=== PATIENT | female | born 1955 | race Caucasian/White ===

== ENCOUNTER → 2018-07-18 08:48 | Outpatient (CLI) | payer OTHER, SELFPAY ==
[2018-07-18 10:38] LABS: Vitamin D,25 Hydroxy 22.4 ng/mL (29.95-100.01)
[2018-07-18 10:54] LABS: Anion Gap 8 (5-15); BUN 18 mg/dL (7-18); BUN/Creat Ratio 21.7 RATIO (10-20); Calcium,Total 9.1 mg/dL (8.5-10.1); Chloride 104 mmol/L (98-107); Cholesterol 231 mg/dL (200); Creatinine, Serum 0.83 mg/dL (0.55-1.02); EST Glomerular Filtration Rate 74 mL/min (>60); Est Glom Filt Rate - Afr Amer 90 mL/min (>60); Glucose 81 mg/dL (74-106); High Density Lipoprotein 91 mg/dL; Potassium 3.7 mmol/L (3.5-5.1); Sodium Level 143 mmol/L (136-145); Thyroid Stim Hormone (TSH) 1.19 uIU/mL (0.358-3.74); Triglycerides 58 mg/dL; Very Low Density Lipoprotein 12 mg/dL (5-40)
== END ==
PROVIDERS: Family Provider Family Medicine; PCP Family Medicine; Visit Provider Family Medicine
DX: I10 Essential (primary) hypertension (principal); E55.9 Vitamin D deficiency, unspecified; Z13.29 Encounter for screening for other suspected endocrine disorder
CPT/HCPCS: 36415; 80048; 80061; 82306; 84443

== ENCOUNTER → 2018-11-11 13:58 | Outpatient (CLI) | payer OTHER, SELFPAY ==
[2018-11-11 15:48] LABS: Vitamin D,25 Hydroxy 20.1 ng/mL (29.95-100.01)
== END ==
PROVIDERS: Family Provider Family Medicine; PCP Family Medicine; Referring Provider Family Medicine; Visit Provider Family Medicine
DX: E55.9 Vitamin D deficiency, unspecified (principal)
CPT/HCPCS: 36415; 82306

== ENCOUNTER → 2018-12-11 16:00 | Outpatient (CLI) | payer OTHER, SELFPAY ==
--- NOTE | 2018-12-11 16:06 | BI_ITS ---
MAMMOGRAPHY - BILATERAL SCREENING REASON FOR EXAM: Female, 63 years old. Routine annual screening examination. PERTINENT HISTORY: Mother with breast cancer. TECHNIQUE: Digital bilateral breast kodak (3D mammographic acquisition) in the CC and MLO projections. 2-D mediolateral oblique (MLO) and craniocaudad (CC) views of both breasts were obtained. CAD: Full Field Digital Mammography with Computer Added Detection was performed. COMPARISON: Comparison is made with prior examination of January 26, 2016 and September 16, 2013. FINDINGS: Breast Composition: The breasts are almost entirely fatty. There is a 6.3 mm x 6 mm nodular density in the retroareolar region of the right breast. Correlation with ultrasound is recommended. No other significant abnormalities are identified. BI/SCREENING MAMM (CAD), BILAT IMPRESSION: 6.3 mm x 6 mm nodular density in the retroareolar region of the right breast. Correlation with ultrasound is recommended. ASSESSMENT CATEGORY: BIRADS Category 0: Incomplete. Need additional imaging evaluation. A letter regarding these results will be sent to the patient by the facility within 30 days. Approximately 10% of breast cancers are not detected by mammography. A normal mammogram should not delay biopsy of a clinically suspicious abnormality. [id number] Electronically Signed: Rocky Kendall, at 8:20 EDT , Service support ,
== END ==
PROVIDERS: Family Provider Family Medicine; PCP Family Medicine; Referring Provider Family Medicine; Visit Provider Family Medicine
DX: Z12.31 Encounter for screening mammogram for malignant neoplasm of breast (principal)
CPT/HCPCS: 77063; 77067

== ENCOUNTER → 2018-12-15 | Outpatient (CLI) | payer OTHER, SELFPAY ==
--- NOTE | 2018-12-15 08:01 | US_ITS ---
STUDY: ULTRASOUND BREAST - RIGHT REASON FOR EXAM: Female, 63 years old. Abnormal screening mammogram. TECHNIQUE: Axial and longitudinal images of the RIGHT breast were performed with a high resolution ultrasound transducer. COMPARISON: Comparison is made with prior mammogram dated December 11, 2018. FINDINGS: RIGHT Breast: The retroareolar region of the breast was examined by ultrasound. There is evidence of dilated retroareolar ducts measuring up to 4 mm. This most likely corresponds to the mammographic findings. US/Breast Limited Unilateral IMPRESSION: Dilated retroareolar ducts. ASSESSMENT CATEGORY: BIRADS Category 2: Benign. A letter regarding these results will be sent to the patient by the facility within 30 days. Electronically Signed: Rocky Kendall, at 14:22 EDT , Service support ,
== END | disposition home or self-care (01) ==
LOC: OPUS 07:59
PROVIDERS: Family Provider Family Medicine; PCP Family Medicine; Referring Provider Family Medicine; Visit Provider Family Medicine
DX: R92.2 Inconclusive mammogram (principal)
CPT/HCPCS: 76642

== ENCOUNTER → 2020-01-11 11:29 | Outpatient (CLI) | payer OTHER, SELFPAY ==
[2020-01-11 15:17] LABS: Absolute Lymphocyte Count 1.65 X10^3/uL (0.83-4.51); Absolute Neutrophil Count 4.3 X10^3/uL (2.0-7.7); Basophil# 0.04 X10^3/uL; Basophil% 0.6 % (0-1); Eosinophils% 1.5 % (0-5); Hematocrit 42.3 % (37-47); Hemoglobin 13.5 g/dL (12.0-15.0); Lymphocyte # 1.65 X10^3/ul (4.0); Lymphocyte % 24.5 % (19-41); Mean Corp Hgb Conc 31.9 g/dL (32-36); Mean Corpuscular Hgb 27.4 pg (27.0-32.0); Monocyte# 0.63 X10^3/uL; Monocyte% 9.4 % (0-10); NRBC Flagged by Analyzer 0 % (0-5); Neutrophil # 4.29 X10^3/uL (2.7-7.7); Neutrophil % 63.7 % (47-70); Platelet Count 220 K/mm3 (150-450); RBC Distribution Width CV 14.3 % (11.6-14.6); RBC Distribution Width SD 43.7 fl (35.1-43.9); Red Blood Count 4.92 M/mm3 (4.2-5.4); White Blood Count 6.7 K/mm3 (4.4-11.0)
[2020-01-11 15:27] LABS: BUN 13 mg/dL (7-18); Creatinine, Serum 0.81 mg/dL (0.55-1.02); EST Glomerular Filtration Rate 76 mL/min (>60); Glucose 74 mg/dL (74-106)
[2020-01-11 15:28] LABS: ALB/GLOB Ratio 0.8 RATIO (0.9-2.4); AST(SGOT) 26 U/L (15-37); Alanine Aminotransfer ALT/SGPT 34 U/L (13-56); Albumin, Serum 3.5 g/dL (3.2-5.0); Alkaline Phosphatase 138 U/L (45-117); Anion Gap 5 (5-15); Calcium,Total 9.4 mg/dL (8.5-10.1); Chloride 102 mmol/L (98-107); Est Glom Filt Rate - Afr Amer 92 mL/min (>60); Globulin 4.3 g/dL (2.2-4.2); Potassium 3.5 mmol/L (3.5-5.1); Protein, Total 7.8 g/dL (6.4-8.2); Sodium Level 137 mmol/L (136-145)
[2020-01-11 15:41] LABS: Internal QC Validated? YES +Cl - CLEAR BKGD; Monotest Negative (Negative)
[2020-01-13 16:29] LABS: EBV Acute VCA IgM < 36.0 U/mL (0.0-35.9); EBV-VCA IgG > 600.0 U/mL (0.0-17.9)
== END ==
PROVIDERS: PCP Family Medicine; Visit Provider Family Medicine
DX: I10 Essential (primary) hypertension (principal)
CPT/HCPCS: 36415; 80053; 85025; 86308; 86664; 86665

== ENCOUNTER → 2020-05-10 14:20 | Outpatient (CLI) | payer OTHER, SELFPAY ==
--- NOTE | 2020-05-10 14:23 | BI_ITS ---
MAMMOGRAPHY - BILATERAL SCREENING REASON FOR EXAM: Female, 64 years old. Routine annual screening examination. PERTINENT HISTORY: Mother with breast cancer. TECHNIQUE: Digital bilateral breast kemi (3D mammographic acquisition) in the CC and MLO projections. 2-D mediolateral oblique (MLO) and craniocaudad (CC) views of both breasts were obtained. CAD: Full Field Digital Mammography with Computer Added Detection was performed. COMPARISON: Comparison is made with prior study dated 12/11/2018 and 01/26/2016. FINDINGS: Breast Composition: There are scattered areas of fibroglandular density. There are no dominant masses or suspicious calcifications. Stable 6.3 mm x 6 mm well-defined nodule in the retroareolar region of the right breast. This most likely represents a small lymph node. No other significant abnormalities are identified. There has been no significant change since the prior study. BI/SCREEN MAMM (CAD) W/KEMI BILAT IMPRESSION: Stable bilateral screening mammogram. Yearly follow-up mammogram recommended. (A) ASSESSMENT CATEGORY: BIRADS Category 2: Benign. A letter regarding these results will be sent to the patient by the facility within 30 days. Approximately 10% of breast cancers are not detected by mammography. A normal mammogram should not delay biopsy of a clinically suspicious abnormality. [id number] Electronically Signed: Rocky Kendall, at 15:47 EDT , Service support ,
== END ==
PROVIDERS: PCP Family Medicine; Referring Provider Family Medicine; Visit Provider Family Medicine
DX: Z12.31 Encounter for screening mammogram for malignant neoplasm of breast (principal); Z80.3 Family history of malignant neoplasm of breast
CPT/HCPCS: 77063; 77067

== ENCOUNTER → 2021-04-14 07:48 | Outpatient (CLI) | payer OTHER, SELFPAY ==
[2021-04-14 10:38] LABS: Vitamin D,25 Hydroxy 39.8 ng/mL
[2021-04-14 10:53] LABS: Anion Gap 7 (5-15); BUN 16 mg/dL (7-18); Calcium,Total 9.2 mg/dL (8.5-10.1); Chloride 104 mmol/L (98-107); Cholesterol 225 mg/dL (200); Creatinine, Serum 0.76 mg/dL (0.55-1.02); EST Glomerular Filtration Rate 81 mL/min (>60); Est Glom Filt Rate - Afr Amer 98 mL/min (>60); Glucose 84 mg/dL (74-106); High Density Lipoprotein 80 mg/dL; Potassium 3.7 mmol/L (3.5-5.1); Sodium Level 140 mmol/L (136-145); Triglycerides 67 mg/dL; Very Low Density Lipoprotein 13 mg/dL (5-40)
== END ==
PROVIDERS: PCP Family Medicine; Referring Provider Family Medicine; Visit Provider Family Medicine
DX: E55.9 Vitamin D deficiency, unspecified (principal); I10 Essential (primary) hypertension
CPT/HCPCS: 36415; 80048; 80061; 82306

== ENCOUNTER 2021-11-07 14:53 | Outpatient (CLI) | payer MEDICARE, OTHER, SELFPAY ==
--- NOTE | 2021-11-07 14:58 | BI_ITS ---
MAMMOGRAPHY - BILATERAL SCREENING REASON FOR EXAM: Female, 66 years old. Routine annual screening examination. PERTINENT HISTORY: Mother with breast cancer. TECHNIQUE: Digital bilateral breast kemi (3D mammographic acquisition) in the CC and MLO projections. 2-D mediolateral oblique (MLO) and craniocaudad (CC) views of both breasts were obtained. CAD: Full Field Digital Mammography with Computer Added Detection was performed. COMPARISON: Comparison is made with prior study 05/10/2020 and 12/11/2018. FINDINGS: Breast Composition: There are scattered areas of fibroglandular density. There are no dominant masses or suspicious calcifications. Stable 6.3 mm x 6 mm well-defined nodule in the retroareolar region of the right breast. No other significant abnormalities are identified. There has been no significant change since the prior study. BI/SCRN MAMM (CAD)W/KEMI BILAT IMPRESSION: Stable bilateral screening mammogram. Yearly follow-up mammogram recommended. (A) ASSESSMENT CATEGORY: BIRADS Category 2: Benign. A letter regarding these results will be sent to the patient by the facility within 30 days. Approximately 10% of breast cancers are not detected by mammography. A normal mammogram should not delay biopsy of a clinically suspicious abnormality. [id number] Electronically Signed: Rocky Kendall MD at 15:53 EST ,
== END 2021-11-07 23:59 | disposition home or self-care (01) ==
LOC: OPBI 14:55
PROVIDERS: PCP Family Medicine; Referring Provider Family Medicine; Visit Provider Family Medicine
DX: Z12.31 Encounter for screening mammogram for malignant neoplasm of breast (principal); Z80.3 Family history of malignant neoplasm of breast
CPT/HCPCS: 77063; 77067

== ENCOUNTER → 2022-06-20 | Outpatient (CLI) | payer MEDICARE, OTHER, SELFPAY ==
--- NOTE | 2022-06-20 08:44 | BD_ITS ---
STUDY: DUAL ENERGY X-RAY ABSORPTIOMETRY / DXA REASON FOR EXAM: Female, 66 years old. [id number] TECHNIQUE: Bone Mineral Density (BMD) measurements of lumbar spine and bilateral hips were obtained. COMPARISON: None. FINDINGS: Lumbar Spine (L1-L4): g/cm2 (1.117) / T-score (0.9) / Z-score (2.7) Findings are suggestive of normal bone density with a low fracture risk. Left Femur Total: g/cm2 (0.988) / T-score (0.4) / Z-score (1.6) Left Femoral Neck: g/cm2 (0.719) / T-score (-1.2) / Z-score (0.4) Right Femur Total: g/cm2 (0.975) / T-score (0.3) / Z-score (1.5) Right Femoral Neck: g/cm2 (0.772) / T-score (-0.7) / Z-score (0.9) BD/Dexa Bone Density Study IMPRESSION: The patient is considered osteopenic as outlined below according to World Cole Organization (WHO) criteria with a low fracture risk. Reference Information: The T-score is the number of standard deviations above or below the standard which is normal for young adults at their peak bone mineral density. The World Health Organization (WHO) interprets the T-scores as follows: Above -1 Normal bone density Between -1 and -2.5 Osteopenia Equal to / or below -2.5 Osteoporosis As a practical clinical guideline, osteopenia may be graded as follows: Mild -1 through -1.5 Moderate -1.6 through -2.0 Severe -2.1 through -2.4 The Z-score is the number of standard deviations above or below age-matched controls. A Z-score of less than -1.5 would be considered abnormal. References: 1. NIH Osteoporosis and Related Bone Diseases www osteo.org 2. International Society for Clinical Densitometry www iscd.org 3. National Osteoporosis Foundation www nof.org Electronically Signed: Rocky Kendall MD at 12:44 EDT ,
[2022-06-20 09:42] LABS: Vitamin D,25 Hydroxy 48.2 ng/mL
[2022-06-20 09:43] LABS: Anion Gap 6 (5-15); BUN 19 mg/dL (7-18); BUN/Creat Ratio 22.2 RATIO (10-20); Calcium,Total 9.2 mg/dL (8.5-10.1); Chloride 103 mmol/L (98-107); Cholesterol 236 mg/dL (200); Creatinine, Serum 0.86 mg/dL (0.55-1.02); EST Glomerular Filtration Rate 71 mL/min (>60); Est Glom Filt Rate - Afr Amer 85 mL/min (>60); Glucose 90 mg/dL (74-106); High Density Lipoprotein 88 mg/dL; Potassium 3.6 mmol/L (3.5-5.1); Sodium Level 139 mmol/L (136-145); Triglycerides 79 mg/dL; Very Low Density Lipoprotein 16 mg/dL (5-40)
== END | disposition home or self-care (01) ==
PROVIDERS: PCP Family Medicine; Referring Provider Family Medicine; Visit Provider Family Medicine
DX: Z78.0 Asymptomatic menopausal state (principal); E55.9 Vitamin D deficiency, unspecified; I10 Essential (primary) hypertension
CPT/HCPCS: 36415; 77080; 80048; 80061; 82306

== ENCOUNTER → 2023-07-06 | Outpatient (CLI) | payer MEDICARE, OTHER, SELFPAY ==
[2023-07-06 11:09] LABS: Anion Gap 1 (5-15); BUN 18 mg/dL (7-18); BUN/Creat Ratio 19.1 RATIO (10-20); Calcium,Total 9.5 mg/dL (8.5-10.1); Chloride 104 mmol/L (98-107); Cholesterol 261 mg/dL (200); Creatinine, Serum 0.94 mg/dL (0.55-1.02); EST Glomerular Filtration Rate 63 mL/min (>60); Est Glom Filt Rate - Afr Amer 76 mL/min (>60); Glucose 87 mg/dL (74-106); High Density Lipoprotein 88 mg/dL; Sodium Level 136 mmol/L (136-145); Thyroid Stim Hormone (TSH) 0.78 uIU/mL (0.358-3.74); Triglycerides 76 mg/dL; Very Low Density Lipoprotein 15 mg/dL (5-40)
[2023-07-08 10:31] LABS: Vitamin D,25 Hydroxy 101.6 ng/mL
== END | disposition home or self-care (01) ==
LOC: MTLAB 09:45 → LAB 09:46
PROVIDERS: PCP Family Medicine; Referring Provider Family Medicine; Visit Provider Family Medicine
DX: I10 Essential (primary) hypertension (principal); M85.80 Other specified disorders of bone density and structure, unspecified site
CPT/HCPCS: 36415; 80048; 80061; 82306; 84443

== ENCOUNTER → 2024-06-17 | Outpatient (CLI) | payer MEDICARE, OTHER, SELFPAY ==
--- NOTE | 2024-06-17 08:09 | BI_ITS ---
MAMMOGRAPHY - BILATERAL SCREENING REASON FOR EXAM: Female, 68 years old. Routine annual screening examination. PERTINENT HISTORY: Mother with breast cancer. TECHNIQUE: Digital bilateral breast kemi (3D mammographic acquisition) in the CC and MLO projections. 2-D mediolateral oblique (MLO) and craniocaudad (CC) views of both breasts were obtained. CAD: Full Field Digital Mammography with Computer Added Detection was performed. COMPARISON: Comparison is made with prior study November 07, 2021 and May 10, 2020. FINDINGS: Breast Composition: There are scattered areas of fibroglandular density. There are no dominant masses or suspicious calcifications. Stable 6 mm well-defined nodule in the retroareolar region of the right breast. No other significant abnormalities are identified. There has been no significant change since the prior study. BI/SCRN MAMM (CAD)W/KEMI BILAT IMPRESSION: Stable bilateral screening mammogram. Yearly follow-up mammogram recommended. (A) ASSESSMENT CATEGORY: BIRADS Category 2: Benign. A letter regarding these results will be sent to the patient by the facility within 30 days. Approximately 10% of breast cancers are not detected by mammography. A normal mammogram should not delay biopsy of a clinically suspicious abnormality. [id number] Electronically Signed: Rocky Kendall MD at 9:45 EDT ,
== END | disposition home or self-care (01) ==
LOC: OPBI 08:07
PROVIDERS: PCP Family Medicine; Referring Provider Family Medicine; Visit Provider Family Medicine
DX: Z12.31 Encounter for screening mammogram for malignant neoplasm of breast (principal); Z80.3 Family history of malignant neoplasm of breast
CPT/HCPCS: 77063; 77067

== ENCOUNTER → 2024-07-29 | Outpatient (CLI) | payer MEDICARE, OTHER, SELFPAY ==
[2024-07-29 10:21] LABS: Hematocrit 38.9 % (37-47); Hemoglobin 12.2 g/dL (12.0-15.0); Mean Corp Hgb Conc 31.4 g/dL (32-36); Mean Corpuscular Hgb 26.3 pg (27.0-32.0); Mean Corpuscular Volume 83.8 fL (81-99); Mean Platelet Vol. 10.9 fl (6.2-12.0); Platelet Count 208 K/mm3 (150-450); RBC Distribution Width CV 13.6 % (11.6-14.6); RBC Distribution Width SD 41.9 fl (35.1-43.9); Red Blood Count 4.64 M/mm3 (4.2-5.4); White Blood Count 4.7 K/mm3 (4.4-11.0)
[2024-07-29 10:48] LABS: ALB/GLOB Ratio 0.9 RATIO (0.9-2.4); AST(SGOT) 15 U/L (15-37); Alanine Aminotransfer ALT/SGPT 14 U/L (13-56); Albumin, Serum 3.3 g/dL (3.2-5.0); Alkaline Phosphatase 94 U/L (45-117); Anion Gap 4 (5-15); BUN 21 mg/dL (7-18); BUN/Creat Ratio 22.2 RATIO (10-20); Calcium,Total 9.1 mg/dL (8.5-10.1); Chloride 106 mmol/L (98-107); Cholesterol 233 mg/dL (200); Creatinine, Serum 0.94 mg/dL (0.55-1.02); EST Glomerular Filtration Rate 63 mL/min (>60); Est Glom Filt Rate - Afr Amer 76 mL/min (>60); Globulin 3.7 g/dL (2.2-4.2); Glucose 84 mg/dL (74-106); High Density Lipoprotein 90 mg/dL; Potassium 3.9 mmol/L (3.5-5.1); Sodium Level 141 mmol/L (136-145); Thyroid Stim Hormone (TSH) 0.996 uIU/mL (0.358-3.740); Triglycerides 79 mg/dL; Very Low Density Lipoprotein 16 mg/dL (5-40)
== END | disposition home or self-care (01) ==
LOC: MTLAB 08:23
PROVIDERS: PCP Family Medicine; Referring Provider Family Medicine; Visit Provider Family Medicine
DX: I10 Essential (primary) hypertension (principal); R60.0 Localized edema
CPT/HCPCS: 36415; 80053; 80061; 84443; 85027

== ENCOUNTER 2024-10-18 03:44 | Inpatient (IN) | payer MEDICARE, OTHER, SELFPAY ==
[2024-10-18] VITALS (20 sets, daily range): BP systolic 98–131; BP diastolic 54–79; PULSE 77–96; RESP 14–18; TEMP 36.4–38.3; O2SAT 85–98; BMI 35.0; BMI 37.8
--- NOTE | 2024-10-18 | APP_PTH ---
PATIENT: AZEB YARBROUGH LOC: MS3 U#:[id number] AGE/SX: 69/F [place] [facility] [place]: Dr. Major Armijo MD : [id number] BED: 1 DIS: 10/22/2024 SPEC #: [id number] RECD: 10/19/24 09:42 STATUS: ALEX MITCHELL #: [id number] MUSA: 10/18/24 00:[address]: Major Armijo DEPT: SURGICAL PATHOLOGY RECD BY: Thien Boswell ENTERED: 10/19/24 09:42 SP TYPE: APPENDIX OTHR DR: Dr. Armand Hunter MD Tissues: Appendix, NOS Procedures: Surgery Specimen Level III HEADER OPERATION: Laparoscopic appendectomy, partial cecectomy PRE-OP DIAGNOSIS: Acute appendicitis, perforated acute appendicitis TISSUE SUBMITTED: Appendix and cecum MICROSCOPIC DIAGNOSIS Appendix and cecum, appendectomy and partial cecectomy: Acute ruptured appendicitis and periappendicitis. One benign periappendiceal lymph node. . 10/20/2024 MICROSCOPIC DESCRIPTION Slides are reviewed. GROSS DESCRIPTION Received in fixative is one container labeled with the patient's name and designated Appendix and cecum. The specimen consists of an appendix measuring 6.5 cm in length and up to 1.2cm in diameter. The attached periappendiceal adipose tissue measures up to 4cm in width. Proximal portion of the specimen shows a minimal amount of cecum which measures up to 4.5cm in width. Most of the cecal portion appears to be stapled. Focal area of rupture is noted adjacent to the proximal stapled margin. Serosal surface is congested and focally covered with boone purulent exudate. Mucosa is congested and hemorrhagic. No fecalith is identified. Grain Drier Operator sections are submitted in five cassettes as follows: 1- most proximal resection margin with area of rupture, 2- middle portion of appendix, 3- tip of appendix, 4&5- periappendiceal adipose tissue. [place] 10/19/2024 TC:2 CPT:98679
--- NOTE | 2024-10-18 04:07 | CT_ITS ---
PROCEDURE: CT of the abdomen/pelvis with IV contrast. REASON FOR EXAM: Right lower quadrant abdominal pain TECHNIQUE: After IV contrast administration, contiguous axial CT images were obtained through the abdomen/pelvis. Sagittal and coronal reformats were created. COMPARISON: None available FINDINGS: Bones are osteopenic with degenerative changes of the spine. Proximal femurs intact. Mild degenerative changes in the hip joints. Heart is not enlarged. No sizable pericardial effusion. Included lower breast tissue unremarkable. Tiny hiatal hernia. Minimal dependent atelectasis in the lower lobes. Patchy wall thickening of the stomach may be due to lack of distention versus peristalsis. No calcified gallstones or abnormal dilation of the biliary tree. Portal vein is patent. The liver, adrenal glands, spleen, and pancreas show no specific abnormality. Kidneys are symmetric in size and enhancement. No solid renal mass or obstructive uropathy. Subcentimeter tiny cyst medial right kidney axial image 35. The urinary bladder is grossly unremarkable. The uterus is absent. No dominant adnexal lesion. No large abdominal wall defect. No abnormally dilated bowel segments or free intraperitoneal air. Scattered patchy wall thickening of the colon may be due to lack of distention versus peristalsis or chronic diverticular disease. There is an appendicolith at the base of the appendix. The appendix is fluid-filled, dilated up to 1.6 cm. There are moderate inflammatory changes in the right lower quadrant, near the appendix. No periappendiceal abscess. Trace amount of free pelvic fluid. No abdominal/pelvic adenopathy. Normal caliber abdominal aorta. CT/Abdomen/Pelvis W IV Cont ONLY IMPRESSION: Findings most compatible with acute appendicitis. Moderate inflammatory change s in the right lower quadrant. No discrete periappendiceal abscess. No bowel obstruction or perforation. No evidence of obstructive uropathy. One or more dose reduction techniques were used (e.g., Automated exposure contr ol, adjustment of the mA and/or kV according to patient size, use of iterative reconstruction technique). Reading Location: [facility]
--- NOTE | 2024-10-18 04:08 | EDS_ITS ---
HPI History of Present Illness Chief Complaint: Abd Pain Narrative Narrative: Chief complaint and HPI: Right lower quadrant abdominal pain. 69-year-old female with past medical history of arthritis, GERD, HTN presents for evaluation of right lower quad abdominal pain. Onset of symptoms was 11 AM. Patient states she developed generalized abdominal pain that has since located to the right lower quadrant. Associated symptoms are nausea, vomiting, fever. Patient states she developed a fever this evening in which she took Tylenol. She last had some Sprite around midnight. She denies any URI symptoms, chest pain, shortness of breath, diarrhea, constipation, dysuria. Has a history of a C- section and hysterectomy. Review of systems: See HPI Medications: As listed on the chart Allergies: As listed on the chart PFSH: Per chart Vital signs: As listed on the chart. Reviewed. Physical exam: Gen: A&O x3 Head: Normocephalic, atraumatic Eyes: No sclera icterus, conjunctiva clear ENT: Moist mucous membranes Neck: Trachea midline, No JVD CV: RRR, no murmurs, no peripheral edema Resp: Lungs CTA BL, no w/r/c GI: Abd soft, non-distended, tender to palpation in the right lower, + McBurney point, + Rovsing sign, no rebound or rigidity Musc: Full ROM, no deformity Skin: Warm, dry Neuro: Alert, oriented, grossly intact, sensation intact Psych: Cooperative, appropriate mood and affect [facility] Medical History (Updated 10/18/24 @ 03:47 by Nahomy Huffman) GERD (gastroesophageal reflux disease) Psoriatic arthritis Hypertension Home Medications ?Medication ?Instructions ?Recorded ?Last Taken ?Type hydrochlorothiazide 25 mg tablet 25 mg PO DAILY Unknown History lisinopril 10 mg tablet 10 mg PO DAILY 10/18/24 Unkn own History magnesium 250 mg tablet 500 mg PO QDAY 10/18/24 Unkn own History meloxicam 7.5 mg tablet 7.5 mg PO DAILY 10/18/24 Unk nown History omeprazole magnesium PO 10/18/24 Unknown History Allergy/AdvReac Type Severity Reaction Status Date / Time No Known Allergies Allergy Verified 10/18/24 03:45 Surgical History (Updated 10/18/24 @ 03:47 by Nahomy Huffman) H/O: hysterectomy Social History Smoking Status: Never smoker EXAM Physical Exam Const Vital Signs: 10/18/24 03:45 10/18/24 03:49 10/18/24 04:51 Temperature 98.4 F 98.4 F 98.4 F Temperature Source Oral Oral Temporal Pulse Rate 85 87 96 Respiratory Rate 17 16 16 Blood Pressure 127/79 H 131/64 H Blood Pressure Mean 95 86 Pulse Ox 96 98 92 Oxygen Delivery Method Room Air Room Air MDM MDM MDM Narrative Medical decision making narrative: 69-year-old female with past medical history of arthritis, GERD, HTN presents for evaluation of right lower quad abdominal pain. Suspect acute appendicitis however differential diagnosis also includes diverticulitis, urolithiasis, UTI, gastroenteritis, pancreatitis. NS bolus, morphine, Zofran ordered for symptoms. CT abdomen pelvis ordered. N.p.o. CBC with mild leukocytosis of 11.8. No anemia. CMP shows mild dehydration. No transaminitis. Lipase unremarkable. CT abdomen pelvis shows acute appendicitis. Moderate inflammatory changes in the right lower quadrant. No discrete Espinoza appendiceal abscess. There is in appendicolith at the base of the appendix. Zosyn ordered. Patient will need surgery with general surgery. General surgery was consulted I spoke with Dr. Armijo. He will evaluate the patient and plan is for surgery. UA pending. Impression: 1. Acute appendicitis Lab Data Labs: Laboratory Results - last 24 hr 10/18/24 03:51 WBC 11.8 H RBC 4.80 Hgb 12.8 Hct 39.3 MCV 81.9 MCH 26.7 L MCHC 32.6 RDW Std Deviation 41.5 RDW Coeff of Yovana 14.0 Plt Count 230 MPV 10.6 Immature Gran % (Auto) 0.600 Neut % (Auto) 85.7 H Lymph % (Auto) 8.8 L [place] % (Auto) 4.7 Eos % (Auto) 0.0 Baso % (Auto) 0.2 Absolute Neuts (auto) 10.1 H Absolute Lymphs (auto) 1.04 Nucleated RBC % 0 Sodium 137 Potassium 3.3 L Chloride 101 Carbon Dioxide 27.0 Anion Gap 9 BUN 17 Creatinine 1.16 H Estim Creat Clear Calc 51.19 Est GFR (MDRD) Af Amer 60 Est GFR (MDRD) Non-Af 49 L BUN/Creatinine Ratio 14.7 Glucose 151 H Calcium 9.0 Total Bilirubin 0.60 AST 11 L ALT 17 Alkaline Phosphatase 112 Total Protein 7.3 Albumin 3.3 Globulin 4.0 Albumin/Globulin Ratio 0.8 L Lipase 13 L Radiography Diagnostic Testing: Clinical Impression(s) from Imaging Studies Abdomen/Pelvis CT 10/18/24 04:07 IMPRESSION: Findings most compatible with acute appendicitis. Moderate inflammatory changes in the right lower quadrant. No discrete periappendiceal abscess. No bowel obstruction or perforation. No evidence of obstructive uropathy. One or more dose reduction techniques were used (e.g., Automated exposure control, adjustment of the mA and/or kV according to patient size, use of iterative reconstruction technique). Reading Location: [facility] Discharge Plan Triage Chief Complaint: Abd Pain ED Provider: Johnathon Holley Dx/Rx/DC Orders Prescriptions: No Action meloxicam 7.5 mg tablet 7.5 mg PO DAILY lisinopril 10 mg tablet 10 mg PO DAILY hydrochlorothiazide 25 mg tablet 25 mg PO DAILY magnesium 250 mg tablet 500 mg PO QDAY omeprazole magnesium [Acid Manufacturing Intern (omeprazole)] PO Primary Care Provider: Armand Hunter Referrals: Armand Hunter MD [Primary Care Provider] - Print Language: Belarusian
[2024-10-18 04:10] LABS: Absolute Lymphocyte Count 1.04 X10^3/uL (0.83-4.51); Absolute Neutrophil Count 10.1 X10^3/uL (2.0-7.7); Basophil# 0.02 X10^3/uL; Basophil% 0.2 % (0-1); Hematocrit 39.3 % (37-47); Hemoglobin 12.8 g/dL (12.0-15.0); Lymphocyte # 1.04 X10^3/ul (0.83-4.51); Lymphocyte % 8.8 % (19-41); Mean Corp Hgb Conc 32.6 g/dL (32-36); Mean Corpuscular Hgb 26.7 pg (27.0-32.0); Mean Corpuscular Volume 81.9 fL (81-99); Mean Platelet Vol. 10.6 fl (6.2-12.0); Monocyte# 0.56 X10^3/uL; Monocyte% 4.7 % (0-10); NRBC Flagged by Analyzer 0 % (0-5); Neutrophil # 10.12 X10^3/uL (2.7-7.7); Neutrophil % 85.7 % (47-70); Platelet Count 230 K/mm3 (150-450); RBC Distribution Width SD 41.5 fl (35.1-43.9); White Blood Count 11.8 K/mm3 (4.4-11.0)
[2024-10-18] MEDS: Morphine 4 MG/ML Syringe IV (04:17)
[2024-10-18] MEDS: 0.9% Normal Saline (1000mL) 1,000 ML 999 ML IV (04:17)
[2024-10-18] MEDS: Ondansetron 4 MG/2 ML Vial IV (04:17)
[2024-10-18 04:26] LABS: ALB/GLOB Ratio 0.8 RATIO (0.9-2.4); AST(SGOT) 11 U/L (15-37); Alanine Aminotransfer ALT/SGPT 17 U/L (13-56); Albumin, Serum 3.3 g/dL (3.2-5.0); Alkaline Phosphatase 112 U/L (45-117); Anion Gap 9 (5-15); BUN 17 mg/dL (7-18); BUN/Creat Ratio 14.7 RATIO (10-20); Chloride 101 mmol/L (98-107); Creatinine, Serum 1.16 mg/dL (0.55-1.02); EST Glomerular Filtration Rate 49 mL/min (>60); Est Glom Filt Rate - Afr Amer 60 mL/min (>60); Estimated Creatinine Clearance 51.19 ml/min; Glucose 151 mg/dL (74-106); Lipase 13 U/L (73-393); Potassium 3.3 mmol/L (3.5-5.1); Protein, Total 7.3 g/dL (6.4-8.2); Sodium Level 137 mmol/L (136-145)
[2024-10-18 06:45] LABS: Mucous, Urine 0 SEEN /hpf (<or=2+); White Blood Cells 0 SEEN /hpf (0-5)
[2024-10-18 06:49] LABS: Color, Urine Yellow (Yellow); Glucose, Dipstick Normal (Normal); Ketone-Dipstick Negative (Negative); Leukocyte Esterase-Dipstick 25 /ul (Negative); Nitrite-Dipstick Negative (Negative); Occult Blood-Urine 10 /ul (Negative); Protein-Dipstick 30 mg/dl (Negative); Urine Bilirubin Dipstick Negative (Negative); Urine Clarity Clear (Clear); Urine Urobilinogen Normal (Normal); Urine pH 6.5 (5.0 - 8.0)
[2024-10-18] MEDS: Piperacil/Tazobactam 4.5 GM in 0.9% Normal Saline (100mL MB+) 100 ML IV (06:52)
--- NOTE | 2024-10-18 06:59 | HP.PCM_ITS ---
HPI - General General Date of Service: 10/18/24 Chief Complaint: Acute onset abdominal pain HPI Narrative AZEB YARBROUGH, is a 69 F who presents to [facility] with her due to complaints of acute, progressive abdominal pain. Patient notes that her symptoms started approximately 11 AM yesterday. She shares that she has had some fluid exposure and initially believed this was the source of her symptoms. However, during the course of the day she observed that her generalized abdominal discomfort became more well localized to the right lower quadrant. She experienced some pain with urination and had no relief after normal bowel movement. Further, she noted some associated nausea and low-grade fevers. When the symptoms progressed she decided to pursue further evaluation at the hospital. Patient's ED evaluation included laboratory that showed mild leukocytosis, mild hypokalemia, but otherwise within normal limits. CT imaging of the abdomen pelvis showed dilation of the appendix up to 1.6 cm with associated appendicolith. No periappendiceal abscess was noted. Patient with past medical history inclusive of arthritis (psoriatic?) on meloxicam, GERD on omeprazole, hypertension, and obesity. Past surgical history includes remote and hysterectomy. [facility] Medical History (Updated 10/18/24 @ 07:[address] Major Armijo MD) GERD (gastroesophageal reflux disease) Psoriatic arthritis Hypertension Home Medications ?Medication ?Instructions ?Recorded ?Last Taken ?Type hydrochlorothiazide 25 mg tablet 25 mg PO DAILY Unknown History lisinopril 10 mg tablet 10 mg PO DAILY 10/18/24 Unkn own History magnesium 250 mg tablet 500 mg PO QDAY 10/18/24 Unkn own History meloxicam 7.5 mg tablet 7.5 mg PO DAILY 10/18/24 Unk nown History omeprazole magnesium PO 10/18/24 Unknown History Allergy/AdvReac Type Severity Reaction Status Date / Time No Known Allergies Allergy Verified 10/18/24 03:45 Surgical History (Updated 10/18/24 @ 03:47 by Nahomy Huffman) H/O: hysterectomy Social History Smoking Status: Never smoker Vital Signs Vital Signs Vital Signs: 10/18/24 03:45 10/18/24 03:49 10/18/24 04:51 Temperature 98.4 F 98.4 F 98.4 F Temperature Source Oral Oral Temporal Pulse Rate 85 87 96 Respiratory Rate 17 16 16 Blood Pressure 127/79 H 131/64 H Blood Pressure Mean 95 86 Pulse Ox 96 98 92 Oxygen Delivery Method Room Air Room Air Weight Weight: 204 lb 2.369 oz Body Mass Index (BMI) 35.0 Physical Exam Const alert and oriented x3 Constitutional Narrative: Mild distress with movement or exam Resp normal respiratory effort GI GI Narrative: Obese, no visible herniations, nondistended, soft, tender over McBurney's point, mildly positive Rovsing, positive psoas and obturator signs. Results Lab / Micro Data 10/18/24 03:51 10/18/24 03:51 Labs: Laboratory Results - last 24 hr 10/18/24 03:51: WBC 11.8 H, RBC 4.80, Hgb 12.8, Hct 39.3, MCV 81.9, MCH 26.7 L, MCHC 32.6, RDW Std Deviation 41.5, RDW Coeff of Yovana 14.0, Plt Count 230, MPV 10.6, Immature Gran % (Auto) 0.600, Neut % (Auto) 85.7 H, Lymph % (Auto) 8.8 L, [place] % (Auto) 4.7, Eos % (Auto) 0.0, Baso % (Auto) 0.2, Absolute Neuts (auto) 10.1 H, Absolute Lymphs (auto) 1.04, Nucleated RBC % 0, Sodium 137, Potassium 3.3 L, Chloride 101, Carbon Dioxide 27.0, Anion Gap 9, BUN 17, Creatinine 1.16 H , Estim Creat Clear Calc 51.19, Est GFR (MDRD) Af Amer 60, Est GFR (MDRD) Non-Af 49 L, BUN/Creatinine Ratio 14.7, Glucose 151 H, Calcium 9.0, Total Bilirubin 0.60, AST 11 L, ALT 17, Alkaline Phosphatase 112, Total Protein 7.3, Albumin 3.3, Globulin 4.0, Albumin/Globulin Ratio 0.8 L, Lipase 13 L Imaging Radiology Impression Abdomen/Pelvis CT 10/18/24 04:07 IMPRESSION: Findings most compatible with acute appendicitis. Moderate inflammatory changes in the right lower quadrant. No discrete periappendiceal abscess. No bowel obstruction or perforation. No evidence of obstructive uropathy. One or more dose reduction techniques were used (e.g., Automated exposure control, adjustment of the mA and/or kV according to patient size, use of iterative reconstruction technique). Reading Location: [facility] Assessment & Plan Assessment/Plan (1) Acute appendicitis: PLAN: Patient is a 69-year-old female who presents with signs and symptoms of acute appendicitis. In addition to a mild leukocytosis with labs patient's CT imaging shows clear evidence of appendicitis with associated appendicoliths. Patient has a background as an endoscopy nurse so I proceeded to share the significance of this association with her. More specifically I described treatment for appendicitis to include antibiotic alone versus antibiotics plus surgical appendectomy. I discussed held recent trials?including the recent coda trial has shown the appendicolith cohort to be at higher risk for failure of antibiotics alone and higher risk of perforation or abscess formation. Thus it was my recommendation to proceed emergently for surgical appendectomy. Procedure was described in detail along with postprocedural expectations. I further shared that patient would be consented for possible partial cecectomy versus ileocecectomy along with appendectomy given the inflammatory changes noted through the patient's appendiceal base. I described that any more extensive surgery would be undertaken and the name of trying to place a staple line in grossly normal tissue to mitigate the risk for staple line disruption. Patient was receptive these terms. Lastly I shared that we would strive for a outpatient disposition, however this would be contingent on intraoperative findings as well as her tolerance of the operation. Upon answering all questions from her and her I then notified the on-call operative team and anesthesia. Emergency medicine has dosed patient appropriately with empiric IV antibiotics. Major Armijo MD General Surgery Endocrine Surgery Pager: [facility] [address] [place] [address], [address] [place] [address] Office: [phone] Charges/Coding Visit Charges Office Visits / Consults: 92480 ED Visit; High/Urgent Severity
[2024-10-18 07:50] LABS: Bacteria 1+ /hpf (None Seen); Red Blood Cells-Urine 0-5 SEEN /hpf (0-5); Squamous Epithelial Cells - UA 0-5 SEEN /hpf (5-10)
--- NOTE | 2024-10-18 08:05 | ED.RN ---
report given to GRAIN THRESHER
--- NOTE | 2024-10-18 08:14 | PCM.PRE.AN2 ---
ASA Classification* ASA Classification ASA Classification: 2 Assessment & Plan Anesthesia* Anesthesia Assessment Anesthesia Assessment: Discussed sedation and/or anesthesia options, risks, benefits, and alternatives with patient/parents/legal guardian/POA. Questions invited. The patient/parents/legal guardian/POA seems to understand and agrees to proceed with anesthesia plan. Reviewed the physical assessment, medical history, allergy history and patient home medications list prior to surgery/procedure/anesthetic and documented any changes. Performed airway and anesthesia risk assessments. Anesthesia Type Anesthesia Type: General History Source History Obtained from:: Patient and Chart Anesthesia Focused Assessment* Temperature: 98.9 F Pulse Rate: 77 Blood Pressure: 122/68 Respiratory Rate: 18 Pulse Ox: 97 Oxygen Delivery Method: Room Air Airway Assessment Mouth opens: >3 cm Mallampati Score: III Teeth Condition: Intact and Caps/Crowns (Multiple caps and crowns. All tight.) Neck Range of motion (ROM): Limited ROM (Somewhat decreased extension.) Focused Labs Anesthesia Preop lab: CBC WBC 11.8 K/mm3 (4.4-11.0) H 10/18/24 03:51 10/18/24 RBC 4.80 M/mm3 (4.2-5.4) 10/18/24 03:51 10/18/24 Hgb 12.8 g/dL (12.0-15.0) 10/18/24 03:51 10/18/24 Hct 39.3 % (37-47) 10/18/24 03:51 10/18/24 Plt Count 230 K/mm3 (150-450) 10/18/24 03:51 10/18/24 CHEMISTRY Potassium 3.3 mmol/L (3.5-5.1) L 10/18/24 03:51 10/18/24 Sodium 137 mmol/L (136-145) 10/18/24 03:51 10/18/24 BUN 17 mg/dL (7-18) 10/18/24 03:51 10/18/24 Creatinine 1.16 mg/dL (0.55-1.02) H 10/18/24 03:51 10/18/24 Glucose 151 mg/dL (74-106) H 10/18/24 03:51 10/18/24 TSH 0.996 uIU/mL (0.358-3.740) 07/29/24 08:24 07/29/24 COAG Pre-Assessment Diagnosis/Proposed Procedure Planned Operative Procedure(s): Laparoscopic appendectomy. Anesthesia History Anesthesia History - health science specialist: Anesthesia History - health science specialist Hx Hospitalization Any Problems With Anesthesia Cholinesterase deficiency You/Your Family Experience fever (hyperthermia) with Relationship Recent Exposure to Contagious Disease Does patient have nerve stimulator Patient instructed to have device shut off --Does patient have Pacemaker or ICD? When Was Last Pacemaker Check QUESTION #4 FULL TEXT: You/Your Family Experience fever (hyperthermia) with Anesthesia Last Oral Intake Last Oral intake: Last Oral Intake NPO since Meds taken in AM with sips of water? Meds patient instructed to take am of surgery Any additional information?: Yes NPO since: 00:00 PONV PONV - health science specialist: PONV - health science specialist Female HX of Motion Sickness HX of N/V After Surgery Non-Smoker Duration of Surgery greater than 60 minutes Number of Risk Factors PONV Score Height & Weight Height & Weight: Anesthesia: Height & Weight Height 5 ft 4 in 10/18/24 03:45 Weight: 92.6 kg 10/18/24 03:45 Body Mass Index (BMI) 35.0 10/18/24 03:45 Respiratory Assessment Respiratory Assessment - health science specialist: Respiratory Tract Infection Hx - health science specialist Hx Respiratory Tract Infection STOP Sleep Apnea STOP Sleep Apnea - health science specialist: STOP Sleep Apnea - health science specialist Hx Hypertension No 07/27/13 14:35 Hx Sleep Apnea CPAP BIPAP Do you snore loudly (louder than talking or can be heard Do you often feel tired/ fatigued/ sleepy during daytime? Has anyone observed you stop breathing during sleep? STOP Results QUESTION #5 FULL TEXT : Do you snore loudly (louder than talking or can be heard through closed doors)? Tobacco Use History Tobacco Use History - health science specialist: Tobacco Use History - health science specialist Tobacco Use Smoking Status Never smoker 10/18/24 03:45 Hx Tobacco Use Years Smoking Packs Smoked per Day Smoking Cessation Date was within the last 15 years Hx Smoking Cessation Date Hx Smoking Cessation Counseling Hematologic Medial History Hematologic Hx - health science specialist: Hematologic Medical Hx - copy director Hx of Blood Transfusion Hx of Transfusion in last 3 Months Date of Last Transfusion (if within last 3 months) Ever experience any problems with transfusion(s)? Specify any problems Hx of Preganancy in last 3 Months Nurse Filling Out Transfusion & Questions: Date: Time: Patient unable to answer at this time (ie. confused, unrespo /Reproduction History /Reproductive History - health science specialist: /Reproductive Hx- health science specialist Hx Now Gestational Age (in weeks): EDC: Hx Hx Para Hx Section SAB PFSH Medical History (Updated 10/18/24 @ 07:[address] Major Armijo MD) GERD (gastroesophageal reflux disease) Psoriatic arthritis Hypertension Home Medications ?Medication ?Instructions ?Recorded ?Last Taken ?Type hydrochlorothiazide 25 mg tablet 25 mg PO DAILY 10/18/24 Unknown History lisinopril 10 mg tablet 10 mg PO DAILY 10/18/24 Unknown History magnesium 250 mg tablet 500 mg PO QDAY 10/18/24 Unknown History meloxicam 7.5 mg tablet 7.5 mg PO DAILY 10/18/24 Unknown History omeprazole magnesium PO 10/18/24 Unknown History Allergy/AdvReac Type Severity Reaction Status Date / Time No Known Allergies Allergy Verified 10/18/24 03:45 Surgical History (Updated 10/18/24 @ 08:[address] Juve Edge MD) H/O section H/O umbilical hernia repair H/O: hysterectomy Social History Smoking Status: Never smoker Review of Systems (Anesthesia) ROS Narrative System reviewed and no additional complaints, except as documented.
[2024-10-18] MEDS: Bupiv/Epi 0.25% 30 ML Vial (08:51)
--- NOTE | 2024-10-18 10:38 | PCM.OPRPT ---
Operative Report (Standard) Operative Information Date of Procedure: 10/18/24 Pre-Operative Diagnosis: Acute appendicitis Post-Operative Diagnosis: Acute complicated appendicitis Surgery/Procedure Performed: Laparoscopic appendectomy with partial cecectomy overlock operator: Yes Engineer Soils: Deonte Chambers Tasks completed by wheelchair van operator first responder: Opening & closing and Other (Operation of laparoscope) Type of Anesthesia: General/Supplemental RN Documented Start/Stop Times: Operation Date: 10/18/24 08:50 Case Time Anesthesia Start 10/18/24 08:25 Into Room 10/18/24 08:25 Procedure Start 10/18/24 08:51 Procedure End 10/18/24 10:41 Anesthesia End 10/18/24 10:52 Out of Room 10/18/24 10:52 Into Recovery 10/18/24 10:53 Out of Recovery 10/18/24 11:59 Procedure Start Time: 08:51 Procedure Stop Time: 10:41 Select all DRAINS/GRAFTS/IMPLANTS that apply: Drains Drain details: 15 [place] round Vargas Estimated Blood Loss: 30 Specimen collected: Yes Description of specimen(s) removed: Appendix and cecum Description of surgery: After appropriate identification in the preoperative holding area, the patient was brought to the operating room and placed supine on the operating room table. Antibiotics had been preoperatively administered by emergency medicine. Patient was then induced with general endotracheal anesthetic. The abdomen was prepped and draped in usual sterile fashion. Formal timeout was conducted to confirm both the patient and the procedure. A supraumbilical incision was made and carried down to the level of the fascia which was sharply opened. After opening the peritoneum in like fashion a finger sweep was made to confirm position, and a balloon trocar was placed and pneumoperitoneum was established to 15 mmHg. Patient was positioned in Trendelenburg with the left side down. 2 additional 5 mm trocars were placed in the left lower quadrant and suprapubic positions. Prior to placement of patient's suprapubic trocar I bluntly swept down some adhesions between the omentum and the left lower quadrant to improve laparoscopic visualization. The peritoneum was inspected and there were no signs of inadvertent injury from this [place] entry. The appendix was visualized with severe inflammation and dilatation coated by fibrinous exudate. As I elevated the appendix anteriorly I found a gross perforation at the base region of the appendix and egress of purulent material. Through this aperture I identified the patient's appendicolith in the lumen of the appendix. With this finding of contamination I requested a laparoscopic suction horse race timer device and an attached Luken's trap to perform an aspiration of this purulent material and send culture of the peritoneal fluid. Given the proximal location of this perforation I recognized that I would need to perform a partial cecectomy in order to land our staple line in viable tissue. Therefore I set about the terminal ileum from the base of the appendix/cecum which had become fused due to inflammatory change and used a bit of [place] dissection with our suction horse race timer device to accomplish this separation. I then laterally opened the white line of Toldt up to the level of the mid ascending colon and reflected the cecum off the retroperitoneum in the avascular plane. Great care was taken with division of any tissue over the pelvic brim as I could not clearly discern where the mesocolon ended and the cecum began given the degree of inflammatory change in these tissues. Using blunt laparoscopic dissection, a window was made in the mesoappendix adjacent to the appendiceal base. The mesoappendix was divided with application of a laparoscopic harmonic. Given the thickness of this tissue there was some bleeding from a sidehole in the appendiceal artery and the appendiceal artery was promptly skeletonized and sealed with direct application of the harmonic device. Then a laparoscopic 65 mm [place] stapler was employed to divide the distal cecum obliquely so as to include the base of the appendix and the nearby perforation. Prior to division I was careful to make sure the terminal ileum was excluded from the resection. The appendix was placed in an Endo Catch bag. The staple line was inspected for hemostasis. After hemostasis was confirmed I undertook extensive irrigation of the abdomen and pelvis with 1 L of lactated Ringer's. Then given the longer than usual staple line and the proximity of the staple line to the appendiceal perforation I chose to try to protect the staple line by covering it with a tongue of omentum. This was accomplished using a single tacking suture with 3-0 silk and laparoscopic needle drivers. A 15 [place] round Vargas drain was fed and through the suprapubic port and positioned first in the pelvis and then along the right paracolic gutter. This drain was secured at the skin with 3-0 nylon suture. Pneumoperitoneum was then evacuated and the supraumbilical port site fascia was closed with #1 Vicryl in a [id number] fashion. The port sites were infiltrated with 30 mL local anesthetic. The skin of each port site was closed with 4-0 Monocryl in a subcuticular fashion. Steri-Strips and OpSite dressings were applied and patient's drain was connected to bulb suction. Patient tolerated procedure well without any apparent complications. They were awoken from general anesthetic without issue and transferred to post anesthesia care unit for ongoing recovery. Surgical Findings: ? Adhesion between the omentum and the left lower quadrant ? Turbid fluid throughout the pelvis and right hemiabdomen ? Evidence of ros perforation near the base of the appendix with a large appendicolith visible through the opening Complications Complications: No
--- NOTE | 2024-10-18 10:57 | PCM.POST.ANE ---
Anesthesia: Postop Eval I Current Vital Signs Temperature: 100.1 F Pulse Rate: 89 Blood Pressure: 121/75 Respiratory Rate: 18 Pulse Ox: 94 Oxygen Delivery Method: Nasal Cannula Oxygen Flow Rate (L/min): 4 Assessment Airway patent: Yes Spontaneous unlabored respirations: Yes Mental status: Asleep nausea: No Vomiting: No Anesthesia Complication: No Fluid Hydration Crystalloid volume administer (ml): 1,100 Total IV fluid infused: 1,100 Progress Note Anesthesia document: Postop Eval 1 completed: Yes
--- NOTE | 2024-10-18 11:25 | PCM.POSTANE2 ---
Anesthesia Postop Eval I Sum Postop Eval Completion status Anesthesia document: Postop Eval 1 completed: Yes Anesthesia Postop Eval I Summary Anesthesia Postop Eval I Summary: Anesthesia Postop Eval I: Assessment Summary Airway patent Yes 10/18/24 10:59 Spontaneous unlabored Yes 10/18/24 10:59 respirations Mental status Asleep 10/18/24 10:59 nausea No 10/18/24 10:59 Vomiting No 10/18/24 10:59 Anesthesia Postop Eval I: Fluid Summary Crystalloid volume administer ,100 10/18/24 10:59 (ml) Colloids volume administered ( ml) Blood Product volume administered (ml) Total IV fluid infused ,100 10/18/24 10:59 Anesthesia Postop Eval I: Summary Notes Anesthesia Complication No 10/18/24 10:59 Anesthesia Complication Comment: Post-operative progress note Anesthesia: Postop Eval II Evaluation Mental status: Awake and Calm Pain Level: 3 nausea: No Vomiting: No Complications Anesthesia Complication: No
[2024-10-18] MEDS: 0.9% Normal Saline (1000mL) 1,000 ML 125 ML IV (12:40)
[2024-10-18] MEDS: Pantoprazole Sodium 40 MG in 0.9% Normal Saline (100mL MB+) 100 ML 330 MG IV (13:35)
[2024-10-18] MEDS: Piperacil/Tazobactam 3.375 GM in 0.9% Normal Saline (50mL MB+) 50 ML IV ×2 (14:14→22:24)
[2024-10-18] MEDS: Acetaminophen 500 MG Tablet PO (20:53)
[2024-10-19] VITALS (7 sets, daily range): BP systolic 98–133; BP diastolic 50–73; PULSE 62–86; RESP 16–19; TEMP 36.4–36.9; O2SAT 93–97; BMI 37.8
[2024-10-19] MEDS: 0.9% Normal Saline (1000mL) 1,000 ML 125 ML IV (04:16)
[2024-10-19] MEDS: Acetaminophen 500 MG Tablet PO ×4 (04:25→22:11)
[2024-10-19] MEDS: Piperacil/Tazobactam 3.375 GM in 0.9% Normal Saline (50mL MB+) 50 ML IV ×3 (05:41→22:10)
[2024-10-19 06:45] LABS: Absolute Lymphocyte Count 0.59 X10^3/uL (0.83-4.51); Absolute Neutrophil Count 5.2 X10^3/uL (2.0-7.7); Basophil# 0.02 X10^3/uL; Basophil% 0.3 % (0-1); Eosinophil# 0.01 X10^3/uL; Eosinophils% 0.2 % (0-5); Hematocrit 32.5 % (37-47); Hemoglobin 10.3 g/dL (12.0-15.0); Lymphocyte # 0.59 X10^3/ul (0.83-4.51); Lymphocyte % 9.5 % (19-41); Mean Corp Hgb Conc 31.7 g/dL (32-36); Mean Corpuscular Hgb 26.5 pg (27.0-32.0); Mean Corpuscular Volume 83.5 fL (81-99); Mean Platelet Vol. 10.6 fl (6.2-12.0); Monocyte# 0.34 X10^3/uL; Monocyte% 5.5 % (0-10); NRBC Flagged by Analyzer 0 % (0-5); Neutrophil % 84.2 % (47-70); POSITIVE DIFFERENTIAL YES; Platelet Count 150 K/mm3 (150-450); RBC Distribution Width CV 14.4 % (11.6-14.6); RBC Distribution Width SD 43.4 fl (35.1-43.9); Red Blood Count 3.89 M/mm3 (4.2-5.4); White Blood Count 6.2 K/mm3 (4.4-11.0)
[2024-10-19 07:16] LABS: Anion Gap 6 (5-15); BUN 13 mg/dL (7-18); Calcium,Total 8.4 mg/dL (8.5-10.1); Chloride 107 mmol/L (98-107); Creatinine, Serum 0.87 mg/dL (0.55-1.02); EST Glomerular Filtration Rate 69 mL/min (>60); Est Glom Filt Rate - Afr Amer 84 mL/min (>60); Estimated Creatinine Clearance 71.07 ml/min; Glucose 94 mg/dL (74-106); Magnesium 2.2 mg/dL (1.6-2.6); Phosphorus 2.6 mg/dL (2.5-4.9); Potassium 3.2 mmol/L (3.5-5.1); Sodium Level 141 mmol/L (136-145)
[2024-10-19] MEDS: Potassium Chloride Oral Tablet 20 MEQ 40 MEQ PO (08:22)
[2024-10-19] MEDS: 0.9% Saline Lock 10 ML Syringe IV (08:22)
[2024-10-19] MEDS: HYDROmorphone 0.5 MG/0.5 ML SYRINGE IV (08:22)
[2024-10-19] MEDS: Ondansetron 4 MG/2 ML Vial IV (08:22)
--- NOTE | 2024-10-19 08:34 | PCM.PN.SRG ---
Subjective Subjective Patient evaluated resting comfortably in bed. She notes abdominal discomfort. She states she is afraid to take the narcotics knowing that it may cause an ileus. She denies any flatus currently. She notes the pain she is experiencing is different from the pain she was admitted with. Objective Data Objective Data Vital Signs: Vital Signs Temp Pulse Resp BP Pulse Ox O2 Del Method O2 Flow Rate 98.1 F 62 19 H 110/50 L 95 Nasal Cannula 2 10/19/24 08:00 10/19/24 08:00 10/19/24 08:00 10/19/24 08:00 10/19/24 08:00 10/19/24 08:00 10/19/24 08:00 Oxygen Flow Rate (L/min) 2 Oxygen Delivery Method Nasal Cannula Weight: 220 lb 0.341 oz Body Mass Index (BMI) 37.8 Intake & Output: Intake and Output for Last 24 Hours 10/17/24 10/18/24 10/19/24 23:59 23:59 23:59 Intake Total 1757.92 / 1757.92 1002.08 / 1002.08 Output Total 655 / 655 100 / 100 Balance 1102.92 / 1102.92 902.08 / 902.08 Lab / Micro Data 10/19/24 05:51 10/19/24 05:51 Labs: Laboratory Results - last 24 hr 10/19/24 05:51: WBC 6.2, RBC 3.89 L, Hgb 10.3 L, Hct 32.5 L, MCV 83.5, MCH 26.5 L, MCHC 31.7 L, RDW Std Deviation 43.4, RDW Coeff of Yovana 14.4, Plt Count 150, MPV 10.6, Immature Gran % (Auto) 0.300, Neut % (Auto) 84.2 H, Lymph % (Auto) 9.5 L, Tensas % (Auto) 5.5, Eos % (Auto) 0.2, Baso % (Auto) 0.3, Absolute Neuts (auto) 5.2, Absolute Lymphs (auto) 0.59 L, Nucleated RBC % 0, Sodium 141, Potassium 3.2 L, Chloride 107, Carbon Dioxide 27.0, Anion Gap 6, BUN 13, Creatinine 0.87, Estim Creat Clear Calc 71.07, Est GFR (MDRD) Af Amer 84, Est GFR (MDRD) Non-Af 69, BUN/Creatinine Ratio 15.0, Glucose 94, Calcium 8.4 L, Phosphorus 2.6, Magnesium 2.2 Micro: Microbiology 10/18/24 09:11 Incision/Surgical Site Gram Stain - Final Physical Exam GI GI Narrative: Abdomen- soft, generalized tenderness. Incisions c/d/i. KEARA drain intact with bloody fluid noted. Assessment & Plan Assessment/Plan (1) Acute appendicitis: QUALIFIERS: Acute appendicitis type: with localized peritonitis Appendicitis perforation presence: with perforation Appendicitis abscess presence: with abscess Appendicitis gangrene presence: without gangrene Qualified Code(s): K35.33 - Acute appendicitis with perforation, localized peritonitis, and gangrene, with abscess PLAN: I am following this patient in conjunction with Dr. Armijo. He has independently evaluated this patient. Labs reviewed. WBC is normal today. Hgb has decreased. Encourage ambulation and I.S Changed Tylenol to scheduled Encouraged to take narcotic pain medication as needed Kpad ordered Labs ordered for tomorrow Keep KEARA drain and monitor Continue antibiotic We will continue to monitor this patient Charges/Coding Visit Charges Inpatient E&M: 61487 Subs Hosp L1 (no charge)
--- NOTE | 2024-10-19 08:44 | NURSING ---
This RN [employer] password wouldn't work this morning. While waiting for issue to be resolved, SWATHI Damon pulled dilaudid, and zofran, and potassium chloride from [employer] and this RN administered it.
--- NOTE | 2024-10-19 10:42 | CASEMGMT ---
SWATHI DEVINE Assessment: Face to Face with pt for initial transition planning/care coordination assessment. RN NILSON introduced self and role at [facility], pt voices understanding and consents to assessment. Pt is A&O x4 and answers all questions appropriately at this time. Pt sitting up in chair, daughter sitting at bedside. Care providers, pharmacy, and demographics verified/updated. Strata: 1 Admitting Dx: Complicated appendicitis PCP: Dale Specialists: Denies Hx of. Preferred Pharmacy: [facility] Insurance: [facility] Prescription Benefit: yes LNOK: , Samir; Daughter, Kaylyn Living Arrangements: Pt lives with in a 2 story home but everything she needs is on the main level. Pt has 3 steps to enter into home. ADLs: Pt is I with ADLs Transportation: Pt drives self and denies concerns with transportation. DME: Denies HHC/SNF: Denies Hx of. Pt states no concerns with going home at time of dc. Pt states no further concerns/needs. RN NILSON discussed possibility of O2 at time of DC. Pt currently on 1L. Pt chose [facility] for DME needs if needed. CM to follow. Advised pt to ask CM if any further question/concerns/needs arise, voices understanding. Pt Goal: Home Plan: Home with family support, follow for O2 needs.
[2024-10-19] MEDS: Pantoprazole Sodium 40 MG in 0.9% Normal Saline (100mL MB+) 100 ML 330 MG IV (10:47)
--- NOTE | 2024-10-19 15:57 | CHAPLAIN ---
Type of Pastoral Visit _x__ Initial Visit ___ Follow-up Visit ___ On-call Visit ___ General Patient Visit ___ Spiritual Assessment ___ Family Conference ___ Bereavement ___ Rapid Response ___ Code Blue ___ Other (describe below) Pastoral Care Referral From _x__ Patient ___ Family ___ Nurse ___ Physician ___ Security Orderly ___ Instruction Assistant Principal ___ Other (describe below) Sacrament/Intervention _x__ Active listening ___ Anointing ___ Hinduism ___ Bereavement ___ Communion _x__ Destiney exploration ___ _x__ Life review _x__ Prayer ___ Reconciliation ___ Sacrament of Sick ___ Supportive presence ___ Wedding ___ Other (describe below) Pastoral Comments patient is welcoming and talkative; pt shares about her emergency surgery and desires prayer for full recovery without complications; 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
--- NOTE | 2024-10-19 23:11 | NURSING ---
pt walked in [place] with layout mechanic, gait steady
[2024-10-20 03:55] VITALS: BP 100/60; PULSE 75; RESP 16; TEMP 37; O2SAT 98
[2024-10-20] MEDS: Acetaminophen 500 MG Tablet PO ×4 (05:45→23:02)
[2024-10-20] MEDS: Piperacil/Tazobactam 3.375 GM in 0.9% Normal Saline (50mL MB+) 50 ML IV ×3 (05:45→21:00)
[2024-10-20 07:04] LABS: Anion Gap 8 (5-15); BUN 11 mg/dL (7-18); BUN/Creat Ratio 12.9 RATIO (10-20); Calcium,Total 8.6 mg/dL (8.5-10.1); Chloride 107 mmol/L (98-107); Creatinine, Serum 0.86 mg/dL (0.55-1.02); EST Glomerular Filtration Rate 70 mL/min (>60); Est Glom Filt Rate - Afr Amer 85 mL/min (>60); Estimated Creatinine Clearance 71.89 ml/min; Glucose 86 mg/dL (74-106); Magnesium 2.2 mg/dL (1.6-2.6); Phosphorus 1.8 mg/dL (2.5-4.9); Potassium 3.4 mmol/L (3.5-5.1); Sodium Level 138 mmol/L (136-145)
--- NOTE | 2024-10-20 07:57 | PN.SURG_ITS ---
Subjective Subjective Patient evaluated resting comfortably in bed. She notes generalized pain throughout her abdomen. She denies any nausea, vomiting currently. She is tolerating clear liquids. She states she does not feel hungry at this point. She did a couple of walks in the hallway yesterday. Negative flatus or BM. She is belching. She notes having a chest cold approximately 3 weeks ago. She notes still having a productive cough and a feeling of mucous within her chest. Objective Data Objective Data Vital Signs: Vital Signs Temp Pulse Resp BP Pulse Ox O2 Del Method O2 Flow Rate 98.6 F 75 16 100/60 98 Room Air 1 10/20/24 03:55 10/20/24 03:55 10/20/24 03:55 10/20/24 03:55 10/20/24 03:55 10/20/24 07:32 10/19/24 22:23 Oxygen Flow Rate (L/min) 1 Oxygen Delivery Method Room Air Weight: 220 lb 0.341 oz Body Mass Index (BMI) 37.8 Intake & Output: Intake and Output for Last 24 Hours 10/18/24 10/19/24 10/20/24 23:59 23:59 23:59 Intake Total 1757.92 / 1757.92 2212.08 / 2212.08 50 / 50 Output Total 655 / 655 1100 / 1100 10 Balance 1102.92 / 1102.92 1112.08 / 1112.08 40 / 40 Lab / Micro Data 10/19/24 05:51 10/20/24 06:02 Labs: Laboratory Results - last 24 hr 10/20/24 06:02: Sodium 138, Potassium 3.4 L, Chloride 107, Carbon Dioxide 24.0, Anion Gap 8, BUN 11, Creatinine 0.86, Estim Creat Clear Calc 71.89, Est GFR (MDRD) Af Amer 85, Est GFR (MDRD) Non-Af 70, BUN/Creatinine Ratio 12.9, Glucose 86, Calcium 8.6, Phosphorus 1.8 L, Magnesium 2.2 Micro: Microbiology 10/18/24 09:11 Incision/Surgical Site Gram Stain - Final 10/18/24 09:11 Incision/Surgical Site Wound Culture - Preliminary Gram positive organism Physical Exam GI GI Narrative: Abdomen- soft, generalized tenderness to palpation, hypoactive bowel sounds. KEARA drain intact with bloody fluid with moderate amount of output. Assessment & Plan Assessment/Plan (1) Acute appendicitis: QUALIFIERS: Acute appendicitis type: with localized peritonitis A ppendicitis gangrene presence: without gangrene Appendicitis perforation presence: with perforation Appendicitis abscess presence: with abscess Q ualified Code(s): K35.33 - Acute appendicitis with perforation, localized peritonitis, and gangrene, with abscess PLAN: I am following this patient in conjunction with Dr. Armijo. He has independently evaluated this patient. Labs reviewed and replaced potassium/phosphorous Duoneb treatment ordered Continue with clear liquids Continue to encourage ambulation and I.S. Continue alternating heat with ice Await bowel function prior to advancing diet Culture growing gram positive organism thus far Keep KEARA drain intact Continue antibiotics We will continue to monitor this patient Charges/Coding Visit Charges Inpatient E&M: 87421 Subs Hosp L1 (post-op; no charge)
[2024-10-20 08:55] VITALS: BP 117/70; PULSE 85; RESP 16; TEMP 37.4; O2SAT 93
[2024-10-20] MEDS: 0.9% Normal Saline (100mL Bag) 100 ML 15 ML IV ×2 (09:55→23:02)
[2024-10-20] MEDS: Potassium Phosphate 21 MM in 0.9% Normal Saline (250mL Bag) 250 ML 84 MM IV (09:56)
[2024-10-20 10:32] VITALS: PULSE 78; RESP 18
[2024-10-20] MEDS: Ipratropium/Albuterol Sulfate 3 ML AMPUL.NEB INHALATION (10:33)
--- NOTE | 2024-10-20 11:44 | NURSING ---
This RN is aware of Vital Signs obtained by Teddy Salinas [facility] Air Battle Manager.
[2024-10-20 14:00] VITALS: BP 110/73; PULSE 89; RESP 14; TEMP 37.6; O2SAT 92
[2024-10-20] MEDS: Pantoprazole Sodium 40 MG in 0.9% Normal Saline (100mL MB+) 100 ML 330 MG IV ×2 (14:27→15:45)
[2024-10-20 21:00] VITALS: BP 106/63; PULSE 80; RESP 16; TEMP 37.7; O2SAT 94
[2024-10-21] MEDS: Piperacil/Tazobactam 3.375 GM in 0.9% Normal Saline (50mL MB+) 50 ML IV (05:54)
[2024-10-21] MEDS: Acetaminophen 500 MG Tablet PO ×4 (05:54→23:19)
[2024-10-21 06:06] VITALS: BP 128/67; PULSE 76; RESP 16; TEMP 36.6; O2SAT 92
[2024-10-21 06:41] LABS: Absolute Lymphocyte Count 0.49 X10^3/uL (0.83-4.51); Absolute Neutrophil Count 4.4 X10^3/uL (2.0-7.7); Basophil# 0.02 X10^3/uL; Basophil% 0.4 % (0-1); Eosinophil# 0.14 X10^3/uL; Eosinophils% 2.5 % (0-5); Hematocrit 33.8 % (37-47); Hemoglobin 10.4 g/dL (12.0-15.0); Lymphocyte # 0.49 X10^3/ul (0.83-4.51); Lymphocyte % 8.9 % (19-41); Mean Corp Hgb Conc 30.8 g/dL (32-36); Mean Corpuscular Hgb 25.8 pg (27.0-32.0); Mean Corpuscular Volume 83.9 fL (81-99); Mean Platelet Vol. 10.2 fl (6.2-12.0); Monocyte# 0.39 X10^3/uL; Monocyte% 7.1 % (0-10); NRBC Flagged by Analyzer 0 % (0-5); Neutrophil # 4.42 X10^3/uL (2.7-7.7); Neutrophil % 80.4 % (47-70); POSITIVE DIFFERENTIAL YES; Platelet Count 202 K/mm3 (150-450); RBC Distribution Width CV 14.6 % (11.6-14.6); RBC Distribution Width SD 44.8 fl (35.1-43.9); Red Blood Count 4.03 M/mm3 (4.2-5.4); White Blood Count 5.5 K/mm3 (4.4-11.0)
[2024-10-21 07:17] LABS: Anion Gap 6 (5-15); BUN 10 mg/dL (7-18); BUN/Creat Ratio 12.2 RATIO (10-20); Calcium,Total 8.8 mg/dL (8.5-10.1); Chloride 109 mmol/L (98-107); Creatinine, Serum 0.82 mg/dL (0.55-1.02); EST Glomerular Filtration Rate 73 mL/min (>60); Est Glom Filt Rate - Afr Amer 89 mL/min (>60); Glucose 91 mg/dL (74-106); Magnesium 2.1 mg/dL (1.6-2.6); Phosphorus 2.3 mg/dL (2.5-4.9); Potassium 3.3 mmol/L (3.5-5.1); Sodium Level 140 mmol/L (136-145)
[2024-10-21 08:10] VITALS: BP 112/71; PULSE 70; RESP 16; TEMP 37; O2SAT 95
--- NOTE | 2024-10-21 08:10 | PN.SURG_ITS ---
Subjective Subjective Patient evaluated resting comfortably in the chair. She denies any nausea, vomiting, fever. She notes having flatus and bowel movement over night. She notes tolerating clear liquids. She notes her abdominal pain has improved. KEARA drain output has picked up slightly. Objective Data Objective Data Vital Signs: Vital Signs Temp Pulse Resp BP Pulse Ox O2 Del Method O2 Flow Rate 98 F 76 16 128/67 H 92 Room Air 1 10/21/24 06:06 10/21/24 06:06 10/21/24 06:06 10/21/24 06:06 10/21/24 06:06 10/21/24 06:06 10/19/24 22:23 Oxygen Flow Rate (L/min) 1 Oxygen Delivery Method Room Air Weight: 220 lb 0.341 oz Body Mass Index (BMI) 37.8 Intake & Output: Intake and Output for Last 24 Hours 10/19/24 10/20/24 10/21/24 23:59 23:59 23:59 Intake Total 2212.08 / 2212.08 1507 / 1507 123.5 / 123.5 Output Total 1100 / 1100 170 / 170 Balance 1112.08 / 1112.08 1337 / 1337 123.5 / 123.5 Lab / Micro Data 10/21/24 05:39 10/21/24 05:39 Labs: Laboratory Results - last 24 hr 10/21/24 05:39: WBC 5.5, RBC 4.03 L, Hgb 10.4 L, Hct 33.8 L, MCV 83.9, MCH 25.8 L, MCHC 30.8 L, RDW Std Deviation 44.8 H, RDW Coeff of Yovana 14.6, Plt Count 202, MPV 10.2, Immature Gran % (Auto) 0.700, Neut % (Auto) 80.4 H, Lymph % (Auto) 8.9 L, [place] % (Auto) 7.1, Eos % (Auto) 2.5, Baso % (Auto) 0.4, Absolute Neuts (auto) 4.4, Absolute Lymphs (auto) 0.49 L, Nucleated RBC % 0, Sodium 140, Potassium 3.3 L, Chloride 109 H, Carbon Dioxide 25.0, Anion Gap 6, BUN 10, Creatinine 0.82, Estim Creat Clear Calc 75.40, Est GFR (MDRD) Af Amer 89, Est GFR (MDRD) Non-Af 73, BUN/Creatinine Ratio 12.2, Glucose 91, Calcium 8.8, Phosphorus 2.3 L, Magnesium 2.1 Micro: Microbiology 10/18/24 09:11 Incision/Surgical Site Gram Stain - Final 10/18/24 09:11 Incision/Surgical Site Wound Culture - Preliminary Alpha hemolytic organism 10/18/24 09:11 Incision/Surgical Site Anaerobic Culture - Preliminary Physical Exam GI GI Narrative: Abdomen- soft, very slight tenderness, however overall improved exam since yesterday. KEARA output is more serosanguineous now. Assessment & Plan Assessment/Plan (1) Acute appendicitis: QUALIFIERS: Acute appendicitis type: with localized peritonitis A ppendicitis gangrene presence: without gangrene Appendicitis perforation presence: with perforation Appendicitis abscess presence: with abscess Q ualified Code(s): K35.33 - Acute appendicitis with perforation, localized peritonitis, and gangrene, with abscess PLAN: I am following this patient in conjunction with Dr. Armijo. He has independently evaluated this patient. Labs reviewed. WBC normal. Hgb stable. Potassium and Phosphrous are low and have been replaced Repeat labs for tomorrow Possibly remove KEARA drain later today Increase diet to full and include Ensure with high protein Transition from IV antibiotics to oral antibiotics. Probable discharge tomorrow Micro prelim noting alpha hemolytic organism We will continue to monitor this patient Charges/Coding Visit Charges Inpatient E&M: 52702 Subs Hosp L1 (no charge; post-op)
[2024-10-21 08:45] VITALS: O2SAT 95
[2024-10-21] MEDS: Potassium Phosphate 15 MM in 0.9% Normal Saline (250mL Bag) 250 ML 125 MM IV (09:06)
[2024-10-21] MEDS: Potassium Chloride Oral Tablet 20 MEQ 40 MEQ PO (09:06)
[2024-10-21] MEDS: Amox/Clavulanate 875 MG Tablet PO ×2 (09:06→21:30)
[2024-10-21 14:20] VITALS: BP 125/71; PULSE 71; RESP 16; TEMP 37.5; O2SAT 93
--- NOTE | 2024-10-21 15:14 | PCM.DC.SUM ---
Providers Date of Admission: 10/18/24 Primary Care Physician: Dr. Armand Hunter MD Reason For Visit: COMPLICATED APPENDICITIS Diagnosis Discharge Diagnosis (1) Acute appendicitis: Status: Acute Code(s): K35.80 - Unspecified acute appendicitis Qualifiers: Acute appendicitis type: with localized peritonitis Appendicitis abscess presence: with abscess Appendicitis gangrene presence: without gangrene Appendicitis perforation presence: with perforation Qualified Code(s): K35.33 - Acute appendicitis with perforation, localized peritonitis, and gangrene, with abscess Plan: Patient is a 69-year-old female who presents with signs and symptoms of acute appendicitis. In addition to a mild leukocytosis with labs patient's CT imaging shows clear evidence of appendicitis with associated appendicoliths. Patient has a background as an endoscopy nurse so I proceeded to share the significance of this association with her. More specifically I described treatment for appendicitis to include antibiotic alone versus antibiotics plus surgical appendectomy. I discussed held recent trials?including the recent coda trial has shown the appendicolith cohort to be at higher risk for failure of antibiotics alone and higher risk of perforation or abscess formation. Thus it was my recommendation to proceed emergently for surgical appendectomy. Procedure was described in detail along with postprocedural expectations. I further shared that patient would be consented for possible partial cecectomy versus ileocecectomy along with appendectomy given the inflammatory changes noted through the patient's appendiceal base. I described that any more extensive surgery would be undertaken and the name of trying to place a staple line in grossly normal tissue to mitigate the risk for staple line disruption. Patient was receptive these terms. Lastly I shared that we would strive for a outpatient disposition, however this would be contingent on intraoperative findings as well as her tolerance of the operation. Upon answering all questions from her and her I then notified the on-call operative team and anesthesia. Emergency medicine has dosed patient appropriately with empiric IV antibiotics. Major Armijo MD General Surgery Endocrine Surgery Pager: [facility] [address] [place] [address] [place] [address] Office: [phone] Medications at Discharge Home Medications hydrochlorothiazide 25 mg tablet 25 mg PO DAILY HTN 10/18/24 lisinopril 10 mg tablet 10 mg PO DAILY HTN 10/18/24 magnesium 250 mg tablet 500 mg PO QDAY supplement 10/18/24 meloxicam 7.5 mg tablet 7.5 mg PO DAILY arthritis 10/18/24 omeprazole magnesium PO 10/18/24 oxycodone 5 mg tablet 5 mg PO Q6H PRN PRN Pain Score 6-10 3 days #10 tabs 10/21/24 Hospital Course Operations appendectomy (Appendectomy with partial cecectomy 10/18/2024) Procedures None Summary of Care Provided Hospital Course: Patient is a 69-year-old female who presented to [facility] ER on 10/18/2024 with complaints of acute onset, progressive abdominal pain. Emergency room workup was convincing for diagnosis of acute appendicitis. With this diagnosis, CT evidence of associated appendicoliths, and patient's exam of localized peritonitis I recommended proceeding emergently for laparoscopic appendectomy versus laparoscopic appendectomy with partial cecectomy versus ileocecectomy. Intraoperatively patient was found to have complicated appendicitis with perforation near the appendiceal base, but I did find it feasible to place a staple line only across a portion of the cecum and so the operation progressed with the partial cecectomy. A drain was placed at the time of the operation and postoperatively patient was admitted to the hospital floor. There, IV fluids and IV antibiotics were continued with anticipation of probable postoperative ileus. Patient's electrolytes were carefully monitored during this time of suboptimal p.o. intake. Her fever curve gradually improved and her bowel function gradually returned. Thus her diet was advanced commensurately. With signs of return of bowel function her postoperative drain was discontinued on postoperative day 3. Antibiotics were switched to an oral route. By the morning of POD 4 patient had tolerated the changes without clinical setback and was deemed appropriate for discharge to home with expectation for outpatient follow up Physical Exam Const alert, oriented x3 and no apparent distress Resp normal respiratory effort GI GI Narrative: Soft, nondistended, port sites appropriate with Steri-Strips over supraumbilical and left lower quadrant ports. Dressing over patient's prior suprapubic drain site Weight / BMI Weight Weight: 220 lb 0.341 oz Body Mass Index (BMI) 37.8 ABG / Lab / Microbiology Data 10/22/24 05:43 10/22/24 05:43 Laboratory: Laboratory Results - last 24 hr 10/21/24 05:39: WBC 5.5, RBC 4.03 L, Hgb 10.4 L, Hct 33.8 L, MCV 83.9, MCH 25.8 L, MCHC 30.8 L, RDW Std Deviation 44.8 H, RDW Coeff of Yovana 14.6, Plt Count 202, MPV 10.2, Immature Gran % (Auto) 0.700, Neut % (Auto) 80.4 H, Lymph % (Auto) 8.9 L, [place] % (Auto) 7.1, Eos % (Auto) 2.5, Baso % (Auto) 0.4, Absolute Neuts (auto) 4.4, Absolute Lymphs (auto) 0.49 L, Nucleated RBC % 0, Sodium 140, Potassium 3.3 L, Chloride 109 H, Carbon Dioxide 25.0, Anion Gap 6, BUN 10, Creatinine 0.82, Estim Creat Clear Calc 75.40, Est GFR (MDRD) Af Amer 89, Est GFR (MDRD) Non-Af 73, BUN/Creatinine Ratio 12.2, Glucose 91, Calcium 8.8, Phosphorus 2.3 L, Magnesium 2.1 Microbiology: Microbiology 10/18/24 09:11 Incision/Surgical Site Gram Stain - Final 10/18/24 09:11 Incision/Surgical Site Wound Culture - Final Streptococcus viridans group [place] odontolyticus 10/18/24 09:11 Incision/Surgical Site Anaerobic Culture - Final Clostridium group Bacteroides thetaiotaomicron Prevotella buccae D/C Instructions DC O2, CPAP, BIPAP Needs Home O2 Discharge instructions: No Meaningful Use Info Meaningful Use Meaningful Use Diagnoses (Choose all that apply): None applicable Ischemic Stroke Statin Dosing Therapy Reference: STATIN DOSE THERAPY REFERENCE: * Patients > 75 years receive moderate or high dose statin therapy. * Patients 75 years or YOUNGER should receive HIGH intensity statin dose unless contraindicated. You will be required to document reason for non-treatment if statin daily dose does not meet guidelines. HIGH DOSE STATIN THERAPY DAILY Atorvastatin > than or = to 40 mg Rosuvastatin > than or = to 20 mg Amlodipine + Atorvastatin > than or = to 2.5/40 mg Ezetimibe + Simvastatin 10/80 mg Simvastatin 80mg Discharge Plan Admission Admit Date/Time: 10/18/24 10:44 Primary Reason for Your Visit: Perforated appendicitis Attending Provider: Major Armijo Primary Care Provider: Ranney,Christopher Discharge Orders/Prescriptions Prescriptions: New oxycodone 5 mg Tablet 5 mg PO Q6H PRN PRN (Reason: Pain Score 6-10) 3 Days Qty: 10 0RF Continued meloxicam 7.5 mg tablet 7.5 mg PO DAILY lisinopril 10 mg tablet 10 mg PO DAILY hydrochlorothiazide 25 mg tablet 25 mg PO DAILY magnesium 250 mg tablet 500 mg PO QDAY omeprazole magnesium [Acid Oil Paint Shader (omeprazole)] PO Referrals / Follow Up: Armand Hunter MD [Primary Care Provider] - Disposition Disposition (needs filled in before D/C Order can be placed): Home, Self Care Charges/Coding Visit Charges Inpatient E&M: 93022 Disch Hosp
--- NOTE | 2024-10-21 16:00 | NURSING ---
All documentation by vp lab Pushpa Llanos reviewed by automated manufacturing instructor Janna SOTELO, RN.
[2024-10-21 21:28] VITALS: BP 127/70; PULSE 65; RESP 16; TEMP 37.1; O2SAT 95
[2024-10-22 04:00] VITALS: BP 133/77; PULSE 71; RESP 16; TEMP 36.8; O2SAT 94
[2024-10-22] MEDS: Acetaminophen 500 MG Tablet PO (04:25)
[2024-10-22 06:58] LABS: Absolute Lymphocyte Count 0.85 X10^3/uL (0.83-4.51); Absolute Neutrophil Count 3.3 X10^3/uL (2.0-7.7); Basophil# 0.01 X10^3/uL; Basophil% 0.2 % (0-1); Eosinophil# 0.21 X10^3/uL; Eosinophils% 4.3 % (0-5); Hematocrit 32.6 % (37-47); Hemoglobin 10.2 g/dL (12.0-15.0); Lymphocyte # 0.85 X10^3/ul (0.83-4.51); Lymphocyte % 17.5 % (19-41); Mean Corp Hgb Conc 31.3 g/dL (32-36); Mean Corpuscular Volume 83.2 fL (81-99); Monocyte# 0.48 X10^3/uL; Monocyte% 9.9 % (0-10); NRBC Flagged by Analyzer 0 % (0-5); Neutrophil # 3.29 X10^3/uL (2.7-7.7); Neutrophil % 67.5 % (47-70); Platelet Count 223 K/mm3 (150-450); RBC Distribution Width CV 14.8 % (11.6-14.6); RBC Distribution Width SD 45.1 fl (35.1-43.9); Red Blood Count 3.92 M/mm3 (4.2-5.4); White Blood Count 4.9 K/mm3 (4.4-11.0)
[2024-10-22 07:45] LABS: Anion Gap 6 (5-15); BUN 9 mg/dL (7-18); BUN/Creat Ratio 13.7 RATIO (10-20); Calcium,Total 9.1 mg/dL (8.5-10.1); Chloride 108 mmol/L (98-107); Creatinine, Serum 0.66 mg/dL (0.55-1.02); EST Glomerular Filtration Rate 95 mL/min (>60); Est Glom Filt Rate - Afr Amer 115 mL/min (>60); Estimated Creatinine Clearance 77.29 ml/min; Glucose 79 mg/dL (74-106); Magnesium 2.1 mg/dL (1.6-2.6); Phosphorus 2.6 mg/dL (2.5-4.9); Potassium 3.7 mmol/L (3.5-5.1); Sodium Level 140 mmol/L (136-145)
[2024-10-22 07:51] VITALS: BP 131/67; PULSE 69; RESP 16; TEMP 36.9; O2SAT 96
--- NOTE | 2024-10-22 08:30 | PCM.PN.SRG ---
Subjective Subjective Patient been tolerating p.o., did have some vomiting x 1 last night but states due to some sinus drainage. Patient did have 4 bowel movements. Objective Data Objective Data Vital Signs: Vital Signs Temp Pulse Resp BP Pulse Ox O2 Del Method O2 Flow Rate 98.4 F 69 16 131/67 H 96 Room Air 1 10/22/24 07:51 10/22/24 07:51 10/22/24 07:51 10/22/24 07:51 10/22/24 07:51 10/22/24 07:51 10/19/24 22:23 Oxygen Flow Rate (L/min) 1 Oxygen Delivery Method Room Air Weight: 220 lb 0.341 oz Body Mass Index (BMI) 37.8 Intake & Output: Intake and Output for Last 24 Hours 10/20/24 10/21/24 10/22/24 23:59 23:59 23:59 Intake Total 1507 / 1507 415.96 / 1065.96 950 / 950 Output Total 170 / 170 140 / 140 Balance 1337 / 1337 275.96 / 925.96 950 / 950 Lab / Micro Data 10/22/24 05:43 10/22/24 05:43 Labs: Laboratory Results - last 24 hr 10/22/24 05:43: WBC 4.9, RBC 3.92 L, Hgb 10.2 L, Hct 32.6 L, MCV 83.2, MCH 26.0 L, MCHC 31.3 L, RDW Std Deviation 45.1 H, RDW Coeff of Yovana 14.8 H, Plt Count 223, MPV 10.0, Immature Gran % (Auto) 0.600, Neut % (Auto) 67.5, Lymph % (Auto) 17.5 L, [place] % (Auto) 9.9, Eos % (Auto) 4.3, Baso % (Auto) 0.2, Absolute Neuts (auto) 3.3, Absolute Lymphs (auto) 0.85, Nucleated RBC % 0, Sodium 140, Potassium 3.7, Chloride 108 H, Carbon Dioxide 26.0, Anion Gap 6, BUN 9, Creatinine 0.66, Estim Creat Clear Calc 77.29, Est GFR (MDRD) Af Amer 115, Est GFR (MDRD) Non-Af 95, BUN/Creatinine Ratio 13.7, Glucose 79, Calcium 9.1, Phosphorus 2.6, Magnesium 2.1 Micro: Microbiology 10/18/24 09:11 Incision/Surgical Site Gram Stain - Final 10/18/24 09:11 Incision/Surgical Site Wound Culture - Preliminary Alpha hemolytic organism 10/18/24 09:11 Incision/Surgical Site Anaerobic Culture - Preliminary Physical Exam Resp normal respiratory effort Cardio regular rate GI GI Narrative: Abdomen: Soft, nondistended, tender near incision's dressed clean dry and intact, suprapubic incision with a nylon suture no active drainage but serosanguineous on gauze, no peritoneal signs Assessment & Plan Assessment/Plan (1) Status post laparoscopic appendectomy: PLAN: Plan Patient is tolerating diet, pain controlled, having bowel movements, okay to DC home Janina Wolfe M.D. Pager: [phone] [facility] [address] [place] [address], [facility], [address] [place] [address] Office: [phone]
--- NOTE | 2024-10-22 09:46 | CASEMGMT ---
SWATHI DEVINE NOTE: Discharge order is in. SWATHI DEVINE to room. Pt sitting up in room, @ bedside. Pt denies having any discharge needs/concerns. She states she has already received the new Rx/pain medication to take home w/her. Tk TURNERN SWATHI DEVINE
[2024-10-22] MEDS: Amox/Clavulanate 875 MG Tablet PO (10:18)
[2024-10-22 10:40] VITALS: BP 126/68; PULSE 76; RESP 16; TEMP 37.2; O2SAT 97
--- NOTE | 2024-10-22 12:43 | PHA.DC.MC.R ---
Pharmacy [facility] has performed discharge medication reconciliation and counseling for this patient. The patient's discharge medication list was reviewed for discrepancies and discrepancies were resolved. The patient was counseled on the following discharge medications and changes in medications for homegoing were reviewed. 1. OXYCODONE The Reason for Use, instructions for use, and potential side effects were reviewed for all new medications. The patient's questions regarding all of their medications were answered. The patient was able to verbally demonstrate an understanding of their discharge medications. Medications at Discharge Home Medications hydrochlorothiazide 25 mg tablet 25 mg PO DAILY HTN 10/18/24 lisinopril 10 mg tablet 10 mg PO DAILY HTN 10/18/24 magnesium 250 mg tablet 500 mg PO QDAY supplement 10/18/24 meloxicam 7.5 mg tablet 7.5 mg PO DAILY arthritis 10/18/24 omeprazole magnesium PO 10/18/24 oxycodone 5 mg tablet 5 mg PO Q6H PRN PRN Pain Score 6-10 3 days #10 tabs 10/21/24
== END 2024-10-22 10:59 | disposition home or self-care (01) | DRG 331 ==
LOC: ED 07:37 → SDC 08:03 → MS3 11:29
PROVIDERS: Physician Assistant; Admitting Provider Surgery; Emergency Provider Surgery; PCP Family Medicine; Visit Provider Surgery
PROC: 0DTJ4ZZ Resection of Appendix, Percutaneous Endoscopic Approach (ICD-10-PCS; CPT 44970; principal; 2024-10-18 08:30)
DX: K35.32 Acute appendicitis with perforation, localized peritonitis, and gangrene, without abscess (principal); K21.9 Gastro-esophageal reflux disease without esophagitis; K66.0 Peritoneal adhesions (postprocedural) (postinfection); Z90.710 Acquired absence of both cervix and uterus; Z79.1 Long term (current) use of non-steroidal anti-inflammatories (NSAID)
CPT/HCPCS: 36415; 74177; 80048; 80053; 81001; 83690; 83735; 84100; 85025; 87070; 87075; 87077; 87186; 87205; 88304; 94640; 94668; 99252; 99284; Q9967; A4216; G0463; J2405

== ENCOUNTER → 2025-02-03 | Outpatient (CLI) | payer MEDICARE, OTHER, SELFPAY ==
--- NOTE | 2025-02-03 06:58 | BD_ITS ---
PROCEDURE: DEXA BONE DENSITY STUDY 02/03/2025 REASON FOR EXAM: F, age 69 y/o . Postmenopausal. TECHNIQUE: DXA scan of sites with data reported below. REFERENCE LINKS: ISCD Adult Positions COMPARISON: None FINDINGS: BMD and T-SCORES Lumbar spine: 1.106 g/cm2, T-score 0.5 Levels: L1 through L4 Left femoral neck: 0.731 g/cm2, T-score -1.1 Femoral neck comparison data not recommended for monitoring change. Left total hip: 1.009 g/cm2, T-score 0.5 Right femoral neck: 0.720 g/cm2, T-score -1.2 Femoral neck comparison data not recommended for monitoring change. Right total hip: 1.020 g/cm2, T-score 0.6 The World Health Organization has defined the following categories based on bone density: Normal bone density: T-score equal to or greater than -1.0 Osteopenia: T-score between -1.0 and -2.5 Osteoporosis: T-score equal to or less than -2.5 The patient does meet the pharmacological treatment recommendations for prevention of osteoporosis. BD/Dexa Bone Density Study IMPRESSION: OSTEOPENIA. Recommend follow-up as clinically warranted. Reading Location: [place] [id number]
== END | disposition home or self-care (01) ==
PROVIDERS: PCP Family Medicine; Referring Provider Family Medicine; Visit Provider Family Medicine
DX: Z78.0 Asymptomatic menopausal state (principal)
CPT/HCPCS: 77080